=== PATIENT | female | born 1980 | race Caucasian/White ===

== ENCOUNTER 2023-06-04 12:54 | Outpatient (CLI) | payer BC | END 2023-06-04 12:55 | disposition home or self-care (01) | LOC: BICRAD 12:54 | PROVIDERS: ATTEND Nurse Practitioner Family | DX: R05.1 Acute cough (principal) | CPT/HCPCS: 71046 ==

== ENCOUNTER 2024-05-06 12:04 | Outpatient (CLI) | payer BC | END 2024-05-06 12:05 | disposition home or self-care (01) | LOC: SCSRAD 12:04 | PROVIDERS: ATTEND Nurse Practitioner Family | DX: M25.562 Pain in left knee (principal) ==